=== PATIENT | male | born 1995 | race Hispanic/Latino ===

== ENCOUNTER 2023-04-18 13:34 | Emergency (ER) | payer BC ==
--- NOTE | 2023-04-18 14:08 | RAD REPORT ---
EXAM DESCRIPTION: RAD - Forearm Right - 04/18/2023 2:00 pm CLINICAL HISTORY: PAIN COMPARISON: <Comparisons> FINDINGS: Soft tissue nodularity is present. No fracture. No radiopaque foreign body. No soft tissue gas.
--- NOTE | 2023-04-18 14:53 | RAD REPORT ---
EXAM DESCRIPTION: US - Extremity Venous Uni Ltd - 04/18/2023 2:47 pm CLINICAL HISTORY: Pain;Swelling Arm swelling COMPARISON: <Comparisons> FINDINGS: Right upper extremity venous system was interrogated with Doppler technique. Normal flow, compressibility and augmentation was noted. There is no DVT present. IMPRESSION: No evidence of right upper extremity deep venous thrombosis.
--- NOTE | 2023-04-18 14:53 | EDPHYS ---
Physician Documentation [facility] Name: Jose Whitley Age: 27 yrs Sex: Male : 1995 Arrival Date: 04/18/2023 Time: 13:34 Bed 18 Private MD: ED Physician Torres Ac HPI: 04/18 13:47 This 27 yrs old Male presents to ER via EMS with complaints of Other, Allergic snw Reaction. 13:47 The patient or guardian complains of pain, that is acute, swelling. The complaints snw affect the right antecubital area, dorsal aspect of right forearm, right wrist and right hand. Context: The problem was sustained at a retirement yard, pt was playing basketball, fouled into an antbed yesterday. Today right arm with impressive edema, pustules, and some serous leakage. Historical: - Allergies: 13:43 No Known Allergies; vg1 - Home Meds: 13:43 None [Active]; vg1 - PMHx: 13:43 None; vg1 - PSHx: 13:43 None; vg1 - Immunization history:: Client reports receiving the 2nd dose of the Covid vaccine. - Social history:: Smoking status: Patient reports the use of cigarette tobacco products. ROS: 13:46 Constitutional: Negative for fever, chills, and weight loss, Eyes: Negative for injury, snw pain, redness, and discharge, ENT: Negative for injury, pain, and discharge, Neck: Negative for injury, pain, and swelling, Cardiovascular: Negative for chest pain, palpitations, and edema, Respiratory: Negative for shortness of breath, cough, wheezing, and pleuritic chest pain, Abdomen/GI: Negative for abdominal pain, nausea, vomiting, diarrhea, and constipation, Back: Negative for injury and pain, : Negative for injury, bleeding, discharge, and swelling, MS/Extremity: Negative for injury and deformity, Neuro: Negative for headache, weakness, numbness, tingling, and seizure, Psych: Negative for depression, anxiety, suicide ideation, homicidal ideation, and hallucinations. 13:46 Skin: Positive for ant bites. Exam: 13:44 Constitutional: This is a well developed, well nourished patient who is awake, alert, snw and in no acute distress. Head/Face: Normocephalic, atraumatic. Eyes: Pupils equal round and reactive to light, extra-ocular motions intact. Lids and lashes normal. Conjunctiva and sclera are non-icteric and not injected. Cornea within normal limits. Periorbital areas with no swelling, redness, or edema. ENT: Nares patent. No nasal discharge, no septal abnormalities noted. Tympanic membranes are normal and external auditory canals are clear. Oropharynx with no redness, swelling, or masses, exudates, or evidence of obstruction, uvula midline. Mucous membranes moist. Neck: Trachea midline, no thyromegaly or masses palpated, and no cervical lymphadenopathy. Supple, full range of motion without nuchal rigidity, or vertebral point tenderness. No Meningismus. Chest/axilla: Normal chest wall appearance and motion. Nontender with no deformity. No lesions are appreciated. Cardiovascular: Regular rate and rhythm with a normal S1 and S2. No gallops, murmurs, or rubs. Normal PMI, no JVD. No pulse deficits. Respiratory: Lungs have equal breath sounds bilaterally, clear to auscultation and percussion. No rales, rhonchi or wheezes noted. No increased work of breathing, no retractions or nasal flaring. Abdomen/GI: Soft, non-tender, with normal bowel sounds. No distension or tympany. No guarding or rebound. No evidence of tenderness throughout. Back: No spinal tenderness. No costovertebral tenderness. Full range of motion. Neuro: Awake and alert, GCS 15, oriented to person, place, time, and situation. Cranial nerves II-XII grossly intact. Motor strength 5/5 in all extremities. Sensory grossly intact. Cerebellar exam normal. Normal gait. Psych: Awake, alert, with orientation to person, place and time. Behavior, mood, and affect are within normal limits. 13:44 Skin: Appearance: normal except for affected area, injury, right arm from just proximal to elbow to fingertips with edema that looks like lymphedema with pustules with leaking of serous fluid s/p fall into antbed. Vital Signs: 13:36 BP 152 / 87; Pulse 58; Resp 16; Temp 98.7(O); Pulse Ox 100% on R/A; Weight 74.84 kg; vg1 Pain 8/10; 14:45 BP 110 / 69; Pulse 55; Resp 16; Pulse Ox 100% on R/A; vg1 13:36 Pain Scale: Adult vg1 MDM: 13:37 Patient medically screened. snw 14:58 Differential diagnosis: closed fracture, contusion. Data reviewed: vital signs, nurses snw notes, radiologic studies, doppler, plain films. Counseling: I had a detailed discussion with the patient and/or guardian regarding: the historical points, exam findings, and any diagnostic results supporting the discharge/admit diagnosis, radiology results, the need for outpatient follow up, for definitive care, to return to the emergency department if symptoms worsen or persist or if there are any questions or concerns that arise at home. Special discussion: I discussed in detail with the patient the higher chance of wound infection based on his presenting history. 04/18 13:44 Order name: US Extremity Venous Unilateral Ltd; Complete Time: 14:56 snw 04/18 13:44 Order name: Forearm Right XRAY; Complete Time: 14:10 snw 04/18 14:51 Order name: Wound dressing: non stick pad and ruth ann for mild compression; Complete Time: snw 15:47 04/18 14:51 Order name: Sling; Complete Time: 15:47 snw Administered Medications: 15:40 Drug: HYDROcodone-acetaminophen PO 5 mg-325 mg 1 tabs Route: PO; vg1 15:47 Follow up: Response: Medication administered at discharge. vg1 Disposition Summary: 04/18/23 14:53 Discharge Ordered Location: Home snw Condition: Stable snw Diagnosis - Insect bite (nonvenomous) of forearm snw - Lymphedema, not elsewhere classified snw Followup: snw - With: Emergency Department - When: As needed - Reason: Worsening of condition Followup: snw - With: Private Physician - When: 24 Hours - Reason: Recheck today's complaints, Continuance of care, Re-evaluation by your physician Discharge Instructions: - Discharge Summary Sheet snw - Allergies, Adult snw - Lymphedema snw - How to Use Compression Stockings snw Forms: - Medication Reconciliation Form snw - Thank You Letter snw - Antibiotic Education snw - Prescription Opioid Use snw Prescriptions: - famotidine 40 mg Oral tablet - take 1 tablet by ORAL route daily; 20 tablet; Refills: 0, Product Selection snw Permitted - mupirocin 2 % Topical ointment - apply 1 application by TOPICAL route 2 times per day; 50 gram; Refills: 0, snw Product Selection Permitted - Zyrtec 10 mg Oral Tablet - take 1 tablet by ORAL route once daily As needed; 20 tablet; Refills: 0, snw Product Selection Permitted - Prednisone 20 mg Oral Tablet - take 2 tablets by ORAL route once daily for 5 days; 10 tablet; Refills: 0, snw Product Selection Permitted Signatures: Dispatcher [employer] Cinthia Fajardo, JOEL-C MARINE DIVER-Socorrow Latricia Ty, RN RN vg1
--- NOTE | 2023-04-18 14:53 | ER ---
Nurse's Notes [facility] Name: Jose Whitley Age: 27 yrs Sex: Male : 1995 Arrival Date: 04/18/2023 Time: 13:34 Bed 18 Private MD: Diagnosis: Insect bite (nonvenomous) of forearm;Lymphedema, not elsewhere classified Presentation: 04/18 13:36 Chief complaint: EMS states: toned out to [facility], pt was out in the yard vg1 yesterday playing basketball and was pushed into a bed of aunts; pt Right arm appears to be red, swollen with blisters. Coronavirus screen: Vaccine status: Patient reports receiving the 2nd dose of the covid vaccine. Client denies travel out of the [place] in the last 14 days. Ebola Screen: Patient negative for fever greater than or equal to 101.5 degrees Fahrenheit, and additional compatible Ebola Virus Disease symptoms Patient denies exposure to infectious person. Patient denies travel to an Ebola-affected area in the 21 days before illness onset. Onset: The symptoms/episode began/occurred yesterday. Anaphylaxis evaluation, no signs or symptoms of anaphylaxis were noted. Initial Sepsis Screen: Does the patient meet any 2 criteria? No. Patient's initial sepsis screen is negative. Does the patient have a suspected source of infection? No. Patient's initial sepsis screen is negative. Risk Assessment: Do you want to hurt yourself or someone else? Patient reports no desire to harm self or others. Onset of symptoms was April 17, 2023. 13:36 Method Of Arrival: EMS: [facility] vg1 13:36 Acuity: LOS 3 vg1 13:47 Care prior to arrival: Medication(s) given: 50 mg Benadryl IVP and 125 mg Solumedrol vg1 IVP in route IV initiated. 20 GA, in the left forearm, administered by nurse at [facility]. Triage Assessment: 13:43 General: Appears uncomfortable, Behavior is calm, cooperative. Pain: Complains of pain vg1 in dorsal aspect of right forearm, right wrist, right hand and palmar aspect of right forearm Pain currently is 8 out of 10 on a pain scale. Pain began 1 day ago. Neuro: Level of Consciousness is awake, alert, obeys commands, Oriented to person, place, time, situation. Cardiovascular: Patient's skin is warm and dry. Respiratory: Airway is patent Respiratory effort is even, unlabored. Derm: Rash noted that is itchy, papular, red, raised. Historical: - Allergies: 13:43 No Known Allergies; vg1 - Home Meds: 13:43 None [Active]; vg1 - PMHx: 13:43 None; vg1 - PSHx: 13:43 None; vg1 - Immunization history:: Client reports receiving the 2nd dose of the Covid vaccine. - Social history:: Smoking status: Patient reports the use of cigarette tobacco products. Screenin:46 [facility] ED Fall Risk Assessment (Adult) History of falling in the last 3 months, vg1 including since admission No falls in past 3 months (0 pts). Abuse screen: Denies threats or abuse. Denies injuries from another. Nutritional screening: No deficits noted. Tuberculosis screening: No symptoms or risk factors identified. Assessment: 13:45 Reassessment: SEE TRIAGE. Respiratory: Airway is patent Respiratory effort is even, vg1 unlabored, Breath sounds are clear bilaterally. 14:45 Reassessment: Patient appears in no apparent distress at this time. No changes from vg1 previously documented assessment. Patient and/or family updated on plan of care and expected duration. Pain level reassessed. Patient is alert, oriented x 3, equal unlabored respirations, skin warm/dry/pink. Vital Signs: 13:36 BP 152 / 87; Pulse 58; Resp 16; Temp 98.7(O); Pulse Ox 100% on R/A; Weight 74.84 kg; vg1 Pain 8/10; 14:45 BP 110 / 69; Pulse 55; Resp 16; Pulse Ox 100% on R/A; vg1 13:36 Pain Scale: Adult vg1 ED Course: 13:35 Patient arrived in ED. iw 13:36 Latricia Ty, MYRNA is Primary Nurse. vg1 13:36 Cinthia Haq FNP-C is PHCP. snw 13:36 Torres Ac MD is Attending Physician. snw 13:42 Triage completed. vg1 13:43 Arm band placed on. vg1 13:46 Patient has correct armband on for positive identification. Placed in gown. Bed in low vg1 position. Call light in reach. Side rails up X 1. guard at bedside and outside room. 14:02 Forearm Right XRAY In Process Unspecified. EDMS 14:48 US Extremity Venous Unilateral Ltd In Process Unspecified. EDMS 15:48 No provider procedures requiring assistance completed. IV discontinued, intact, vg1 bleeding controlled, No redness/swelling at site. Pressure dressing applied. Administered Medications: 15:40 Drug: HYDROcodone-acetaminophen PO 5 mg-325 mg 1 tabs Route: PO; vg1 15:47 Follow up: Response: Medication administered at discharge. vg1 Medication: 15:48 VIS not applicable for this client. vg1 Outcome: 14:53 Discharge ordered by . snw 15:48 Discharged to Law Enforcement vg1 15:48 Condition: good 15:48 Discharge instructions given to patient, police, Instructed on discharge instructions, follow up and referral plans. medication usage, Demonstrated understanding of instructions, follow-up care, medications, wound care, Prescriptions given X 4. 15:48 Patient left the ED. vg1 Signatures: Dispatcher [employer] Cinthia Fajardo, SOLE SCANNER OPERATOR-Claudia Cheek, RN RN Latricia Fiore RN RN vg1
[2023-04-18] MEDS ORDERED: HYDROCODONE/APAP 5/325 MG TAB ONE (15:34)
[2023-04-18] MEDS ORDERED: MUPIROCIN 2% OINT 22GM TUBE TOP ONE (15:34)
[2023-04-18 15:53] VITALS: TEMP 98.7; O2SAT 100
[2023-04-18 15:55] VITALS: BP 110/69
== END 2023-04-18 15:48 | disposition home or self-care (01) ==
LOC: ER 13:34
DX: S50.861A Insect bite (nonvenomous) of right forearm, initial encounter (principal); I89.0 Lymphedema, not elsewhere classified
CPT/HCPCS: 93971